=== PATIENT | female | born 1975 | race Caucasian/White ===

== ENCOUNTER → 2019-12-02 10:32 | Outpatient (CLI) | payer MEDICAID | END | disposition home or self-care (01) | LOC: D.MRI 10:32 | PROVIDERS: ATTEND Clinical Nurse Specialist Family Health | DX: M25.512 Pain in left shoulder (principal) ==

== ENCOUNTER 2019-12-19 05:50 | Day surgery (SDC) | payer MEDICAID ==
[2019-12-18 08:46] LABS: HEMATOCRIT 31.4 % (36.0-48.0); HEMOGLOBIN 9.4 g/dL (12-16); MCH 21.8 pg (26.0-34.0); MCHC 29.9 g/dL (31.0-37.0); MCV 72.7 fL (80.0-100.0); MEAN PLATELET VOLUME 9.6 fL (7.4-10.4); RBC 4.32 10x6/uL (4.00-5.40); RDW 17.4 % (11.5-14.5); WBC 7.9 10x3/uL (4.8-10.8)
[~2019-12-19] VITALS: Ht 157.5 cm; Wt 74.8 kg
[2019-12-19 07:06] VITALS: BP 102/58; Ht 157.5 cm; Wt 74.8 kg
--- NOTE | 2019-12-19 07:27 | NUR ---
LEFT SHOULDER NERVE BLOCK AT BEDSIDE.
[2019-12-19] MEDS ORDERED: HYDROCODON-ACE1 EA10 PO (08:39)
--- NOTE | 2019-12-19 12:44 | NUR ---
DISHARGED IN STABLE CONDITION AND WITHOUT COMPLAINT. SLING AND WAIST BELT/PILLOW POSITIONED. PT VERBALIZED AN UNDERSTANDING.
--- NOTE | 2019-12-20 08:05 | OP ---
PATIENT NAME: CHARLES DIETZ MEDICAL RECORD: [id number] :73 LOCATION:[facility] ADMISSION DATE: SURGEON: CHRIS ROSALES MD DATE OF OPERATION: 12/19/2019 PREOPERATIVE DIAGNOSES: Rotator cuff tear of the left shoulder with impingement syndrome. POSTOPERATIVE DIAGNOSES: Rotator cuff tear of the left shoulder with impingement syndrome. PROCEDURES: 1. Arthroscopic rotator cuff repair of the left shoulder. 2. Arthroscopic distal clavicle excision done through separate incision, left shoulder pain. 3. Arthroscopic subacromial decompression with acromioplasty and bursectomy. SURGEON: Chris Rosales MD FAMILY SERVICES SPECIALIST: CAMILA Silva INTRAOPERATIVE COMPLICATIONS: None. SUMMARY OF PATHOLOGIC FINDINGS: The patient did indeed have a full thickness rotator cuff tear on the articular aspect mostly being an ALPSA lesion. She also had a very downward sloping acromion with excoriation of the coracoacromial ligament and grade IV chondromalacia of distal clavicle. OPERATIVE SUMMARY IN DETAIL: After obtaining the appropriate preoperative orthopedic surgery consent as well as anesthetic consultation, evaluation and clearance, the patient was brought to the operating room and placed on the operating table in supine position. After adequate general laryngeal mask airway was administered, the patient was placed in a right lateral decubitus position. All pressure points were well padded to include down leg peroneal pad as well as axillary roll. The patient was held firmly to the operating table using the vacuum pack suction system. Left upper extremity and shoulder were then prepped and draped in routine sterile fashion. The arm was held in the [employer] traction boom at 30 degrees of forward flexion, 30 degrees of abduction with 10 pounds of traction laterally. Arthroscopy was established in the glenohumeral joint from the posterior portal. Anterior portal was established in the anterior safe interval. Diagnostic arthroscopy did show the full thickness rotator cuff tear, small lateral based incision was utilized for debridement of the supraspinatus footprint close the articular side as well as the rotator cuff tissue that appeared to be nonvascular. Attention was then turned to the subacromial space. While on the subacromial space, [place] tissue ablation system was utilized to denude the undersurface of the acromion of all soft tissue elements and release the coracoacromial ligament. A 5-0 barrel bur was used to perform acromioplasty at the level of acromioclavicular joint. Then, through a separate anterior portal under direct arthroscopic visualization, distal clavicle was excised. Having completed this, attention returned to the rotator cuff. Further decortication was carried out for reapproximation of the rotator cuff. A #2 FiberTape was then placed using the OptTownion suture passer and this was then anchored laterally with a self-punching 4.75 SwiveLock from [employer]. Having completed this, arthroscopy portals were closed in routine interrupted fashion by CAMILA Silva. Sterile dressings OPERATIVE REPORT [id number] CHARLES DIETZ were applied. The patient was awakened, taken to recovery room in stable condition. All final needle and sponge counts were correct. TRANSINT:[id number] Voice Confirmation ID: [id number] DOCUMENT ID: [id number] BOBBY SOLIZ, CHRIS REGAN at 0805 CC: [id number] DICTATION DATE: 12/19/19 1335 [employer] POLICE OFFICER: 12/19/19 1725 [facility] [place] 12/19/19 [id number] [place] [address]
== END 2019-12-19 10:50 | disposition home or self-care (01) ==
LOC: D.OPS 05:50 → D.PAN 08:50 → D.OPS 09:00 → D.PAN 09:00 → D.OPS 10:50
PROVIDERS: Anesthesiology; ATTEND Orthopaedic Surgery
DX: M75.102 Unspecified rotator cuff tear or rupture of left shoulder, not specified as traumatic (principal); M75.42 Impingement syndrome of left shoulder